=== PATIENT | female | born 1955 | race Asian ===

== ENCOUNTER → 2017-07-21 | Day surgery (SDC) | payer BC ==
[~2017-07-21] VITALS: Ht 162.6 cm; Wt 52.2 kg
[~2017-07-21] MED LIST: BACITRACIN INJ 50000 UNIT VIAL ONE; BUPIVACAINE HCL 50 ML ONE; LIDOCAINE 1% HCL (LOCAL ANESTH.) INJ 20ML MDV ONE; ceFAZolin 1GM/50ML D5W 50 ML IV ONE
[2017-07-21 08:13] LABS: Basophils # (auto) 0 uL; Basophils % (auto) 0.6 % (0.0-2.0); CONDITION Y; Eosinophils # (auto) 0.1 uL; Eosinophils % (auto) 2.4 % (0.0-7.0); Hematocrit 39.3 % (36.0-46.0); Hemoglobin 13.4 g/dL (12.2-16.2); Lymphocytes # (auto) 1.3 uL; Lymphocytes % (auto) 45.4 % (10.0-50.0); Mean Corpuscular Hemoglobin 32.6 pg (28.0-32.0); Mean Platelet Volume 9.5 fL (6.9-10.8); Monocytes # (auto) 0.3 uL; Neutrophils # (auto) 1.2 uL; Neutrophils % (auto) 42.6 % (37.0-80.0); Platelet Count (auto) 167 10^3/uL (140-450); Red Cell Distribution Width 11.9 % (11.8-14.3); White Blood Cell 2.9 10^3/uL (4.4-10.8)
[2017-07-21 08:20] LABS: INR 1.01 (0.9-1.15); Partial Thromboplastin Time 25.7 sec (22.64-33.71)
[2017-07-21 08:22] LABS: Calcium 8.7 mg/dL (8.5-10.1); Potassium 3.5 mmol/L (3.5-5.1)
[2017-07-21 09:12] VITALS: BP 134/63
== END | disposition home or self-care (01) ==
LOC: SUR 06:44
PROVIDERS: ATTEND Orthopaedic Surgery
DX: M65.341 Trigger finger, right ring finger (principal); Z90.710 Acquired absence of both cervix and uterus
CPT/HCPCS: 26055; 36415; 80048; 85025; 85610; 85730; J0690; J2001; J3490; J7030